=== PATIENT | female | born 1995 | race Caucasian/White ===

== ENCOUNTER 2017-01-12 13:35 | Emergency (ER) | payer OTHER ==
[~2017-01-12] VITALS: Ht 154.9 cm; Wt 52.1 kg
[2017-01-12 13:42] VITALS: BP 150/92; PULSE 89; TEMP 37.2; O2SAT 98; Ht 154.9 cm; Wt 52.1 kg
[2017-01-12] MEDS ORDERED: XYLOCAINE 1%/SOD BICARB 20 ML VIAL INFIL ONE (14:00)
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
== END 2017-01-12 14:32 | disposition home or self-care (01) ==
LOC: C.EDB 13:37 → C.EDD 14:32
DX: S01.511A Laceration without foreign body of lip, initial encounter (principal); W22.8XXA Striking against or struck by other objects, initial encounter